=== PATIENT | female | born 1935 | race Asian ===

== ENCOUNTER 2021-02-19 14:44 | Emergency (ER) | payer OTHER ==
[~2021-02-19] VITALS: Ht 152.4 cm; Wt 59.0 kg
[2021-02-19 14:55] VITALS: BP_SYST 115
[2021-02-19] MEDS: ACETAMINOPHEN 325 MG TABLET PO ONE (15:11)
[2021-02-19 17:31] VITALS: BP_SYST 127
== END 2021-02-19 17:31 | disposition home or self-care (01) ==
LOC: SED 14:44
DX: S09.8XXA Other specified injuries of head, initial encounter (principal); I10 Essential (primary) hypertension; E11.9 Type 2 diabetes mellitus without complications; Z88.1 Allergy status to other antibiotic agents; Z88.6 Allergy status to analgesic agent; Z88.8 Allergy status to other drugs, medicaments and biological substances; W01.0XXA Fall on same level from slipping, tripping and stumbling without subsequent striking against object, initial encounter; Y93.89 Activity, other specified; Y92.89 Other specified places as the place of occurrence of the external cause; Y99.8 Other external cause status
CPT/HCPCS: 70450-TC; 70486-TC; 73564; 76376; 99285